=== PATIENT | female | born 1945 | race Caucasian/White ===

== ENCOUNTER 2016-11-15 13:43 | Outpatient (RCR) | payer MEDICARE ==
[2016-09-13] MEDS: inFLIXimab 300 MG/NS 250 ML (EXCEL) IV SCH ×2 (13:45)
[2016-09-13 14:52] VITALS: BP 130/74
[2016-09-13 16:02] VITALS: BP 130/74
[~2016-11-15] VITALS: Ht 165.1 cm; Wt 72.6 kg
[~2016-11-15 13:43] MED LIST: ASP81TEC PO; BACL10TA PO; CALC-760 PO; CEPH500C PO; CETI10TA17 PO; CHOL10002 GT; CLOB15CR3 TP; CYAN100053 IJ; CYCL10TA9 PO; DICL75TA2 PO; DIPH25TA82 PO; FERR27TA PO; FLUO40CA PO; FNT50TD TD; FOLI0.4T2 PO; GBPN300C PO; HCT25T PO; HYDR-2856 PO; HYDR-3454 PO; HYDR-3583 PO; LISI1TAB8 PO; MAGN200T3 PO; MAGN250T7 PO; MELO-195 PO; METH-336 PO; METHOTREXATE 2.5 MG PO; MGX400T PO; MTX2.5T PO; MULT-608 PO; OXYB5TAB9 PO; POTA10TA36 PO; POTA99TA7 PO; RANI-351 PO; TR1C15 TOP; TRAM50TA2 PO; [UNRECOGNIZED DRUG - OTHER] SQ
[2016-11-15] MEDS: inFLIXimab 300 MG/NS 250 ML (EXCEL) IV SCH ×2 (14:00)
[2016-11-15 16:10] VITALS: BP 106/63
== END 2016-12-12 | disposition home or self-care (01) ==
LOC: SDC 13:43
PROVIDERS: ATTEND Internal Medicine Rheumatology
DX: M05.79 Rheumatoid arthritis with rheumatoid factor of multiple sites without organ or systems involvement (principal)
CPT/HCPCS: 96365; 96366

== ENCOUNTER → 2017-01-10 | Outpatient (CLI) | payer MEDICARE ==
[~2017-01-10] VITALS: Ht 165.1 cm; Wt 72.6 kg
[~2017-01-10] MED LIST changes: +inFLIXimab 300 MG/NS 250 ML (EXCEL) IV SCH
[2017-01-10 15:52] VITALS: BP 117/67
== END ==
LOC: SDC 12:52
PROVIDERS: ATTEND Internal Medicine Rheumatology
DX: M05.79 Rheumatoid arthritis with rheumatoid factor of multiple sites without organ or systems involvement (principal)
CPT/HCPCS: 96365; 96366

== ENCOUNTER → 2017-03-07 | Outpatient (CLI) | payer MEDICARE ==
[~2017-03-07] VITALS: Ht 165.1 cm; Wt 72.6 kg
[2017-03-07 14:00] VITALS: BP 139/70
[2017-03-07 16:20] VITALS: BP 139/70
== END ==
LOC: SDC 13:47
PROVIDERS: ATTEND Internal Medicine Rheumatology
DX: M05.79 Rheumatoid arthritis with rheumatoid factor of multiple sites without organ or systems involvement (principal)
CPT/HCPCS: 96365; 96366

== ENCOUNTER → 2017-03-12 | Outpatient (CLI) | payer MEDICARE ==
[~2017-03-12] MED LIST changes: -inFLIXimab 300 MG/NS 250 ML (EXCEL) IV SCH
--- NOTE | 2017-03-14 19:15 | Diagnostic Imaging Report ---
Bilateral screening mammogram The current study was also evaluated with a Computer Aided Detection (CAD) system. Indication: Screening. No current complaints stated on the questionnaire. COMPARISON: 01/30/16. FINDINGS: The breasts are composed of heterogeneously dense parenchyma which may decrease mammographic sensitivity. There are scattered benign-appearing calcifications seen. Allowing for technique and positional differences, no suspicious change is seen. IMPRESSION: Dense breasts with no definite change. ACR BI-RADS Category 2: Benign findings. Result letter will be mailed to the patient. Note: At least 10% of breast cancer is not imaged by mammography. Dictated by: Dictated on workstation # [id number]
== END ==
LOC: RAD 13:34
PROVIDERS: ATTEND Nurse Practitioner
DX: Z12.31 Encounter for screening mammogram for malignant neoplasm of breast (principal)
CPT/HCPCS: 77067

== ENCOUNTER → 2017-05-14 | Outpatient (CLI) | payer MEDICARE ==
[~2017-05-14] VITALS: Ht 165.1 cm; Wt 72.6 kg
[~2017-05-14] MED LIST changes: +inFLIXimab 300 MG/NS 250 ML (EXCEL) IV SCH
[2017-05-14 12:15] VITALS: BP 108/55
== END ==
LOC: SDC 12:11
PROVIDERS: ATTEND Internal Medicine Rheumatology
DX: M05.79 Rheumatoid arthritis with rheumatoid factor of multiple sites without organ or systems involvement (principal)
CPT/HCPCS: 96365; 96366

== ENCOUNTER 2017-07-03 11:15 | Outpatient (RCR) | payer MEDICARE ==
[~2017-07-03 11:15] MED LIST changes: -inFLIXimab 300 MG/NS 250 ML (EXCEL) IV SCH
[2017-07-09] MEDS ORDERED: inFLIXimab 300 MG/NS 250 ML (EXCEL) IV SCH ×4 (14:44→15:00)
== END 2017-08-02 13:38 | disposition home or self-care (01) ==
PROVIDERS: ATTEND Orthopaedic Surgery
DX: M47.896 Other spondylosis, lumbar region (principal)

== ENCOUNTER → 2017-07-09 | Outpatient (CLI) | payer MEDICARE ==
[~2017-07-09] VITALS: Ht 165.1 cm; Wt 72.6 kg
[~2017-07-09] MED LIST changes: +INFLIXIMAB DYYB IV SCH; +NORMAL SALINE IV SCH; +inFLIXimab 300 MG/NS 250 ML (EXCEL) IV SCH
[2017-07-09 14:25] VITALS: BP 128/72
== END ==
LOC: SDC 14:17
PROVIDERS: ATTEND Internal Medicine Rheumatology
DX: M05.79 Rheumatoid arthritis with rheumatoid factor of multiple sites without organ or systems involvement (principal)
CPT/HCPCS: 96365; 96366

== ENCOUNTER → 2017-09-30 | Outpatient (CLI) | payer MEDICARE ==
[~2017-09-30] VITALS: Ht 165.1 cm; Wt 72.6 kg
[~2017-09-30] MED LIST changes: -INFLIXIMAB DYYB IV SCH; -NORMAL SALINE IV SCH; +SODIUM CHLORIDE IV ONE; +[UNRECOGNIZED DRUG - OTHER] IV ONE; -inFLIXimab 300 MG/NS 250 ML (EXCEL) IV SCH
[2017-09-30 12:00] VITALS: BP 125/67
== END ==
LOC: SDC 11:54
PROVIDERS: ATTEND Internal Medicine Rheumatology
DX: M05.79 Rheumatoid arthritis with rheumatoid factor of multiple sites without organ or systems involvement (principal)
CPT/HCPCS: 96365; 96366

== ENCOUNTER → 2017-11-25 | Outpatient (CLI) | payer MEDICARE ==
[~2017-11-25] VITALS: Ht 165.1 cm; Wt 72.6 kg
[2017-11-25 12:39] VITALS: BP 127/50
== END ==
LOC: SDC 12:31
PROVIDERS: ATTEND Internal Medicine Rheumatology
DX: M05.79 Rheumatoid arthritis with rheumatoid factor of multiple sites without organ or systems involvement (principal)

== ENCOUNTER 2018-04-03 09:45 | Outpatient (CLI) | payer MEDICARE ==
[~2018-04-03] VITALS: Ht 165.1 cm; Wt 68.5 kg
[~2018-04-03 09:45] MED LIST changes: -ASPI-983 PO; -CHOL10007 PO; -CNC1KV IM; -FENT1PAT58 TD; -FLUO20CA25 PO; -Ferrous Sulfate PO; -GABA-488 PO; -MAGN400T39 PO; -METH2.5T PO; -RANI150T11 PO; -SODIUM CHLORIDE IV ONE; -[UNRECOGNIZED DRUG - OTHER] IV ONE
[2018-04-03 10:02] VITALS: BP 134/74
[2018-04-03] MEDS ORDERED: LISI1TAB8 PO (10:39)
[2018-04-03] MEDS ORDERED: GABA-488 PO (10:39)
[2018-04-03] MEDS ORDERED: TRAM50TA2 PO (10:39)
[2018-04-03] MEDS ORDERED: METH2.5T PO (10:39)
[2018-04-03] MEDS ORDERED: CNC1KV IM (10:39)
[2018-04-03] MEDS ORDERED: CHOL10007 PO (10:39)
[2018-04-03] MEDS ORDERED: POTA10TA36 PO (10:39)
[2018-04-03] MEDS ORDERED: ASPI-983 PO (10:39)
[2018-04-03] MEDS ORDERED: FLUO40CA PO (10:39)
[2018-04-03] MEDS ORDERED: FLUO20CA25 PO (10:39)
[2018-04-03] MEDS ORDERED: FENT1PAT58 TD (10:39)
[2018-04-03] MEDS ORDERED: Ferrous Sulfate PO (10:39)
[2018-04-03] MEDS ORDERED: MAGN400T39 PO (10:39)
[2018-04-03] MEDS ORDERED: RANI150T11 PO (10:39)
== END 2018-04-03 10:30 | disposition home or self-care (01) ==
LOC: PREOP 09:45
PROVIDERS: ATTEND Podiatrist Foot & Ankle Surgery
DX: Z01.818 Encounter for other preprocedural examination (principal); M20.42 Other hammer toe(s) (acquired), left foot; Z88.0 Allergy status to penicillin; Z88.2 Allergy status to sulfonamides; Z88.5 Allergy status to narcotic agent
CPT/HCPCS: 87081

== ENCOUNTER → 2018-04-03 | Outpatient (CLI) | payer MEDICARE ==
[~2018-04-03] VITALS: Ht 165.1 cm; Wt 68.5 kg
[~2018-04-03] MED LIST changes: +ASPI-983 PO; +CHOL10007 PO; +CNC1KV IM; +FENT1PAT58 TD; +FLUO20CA25 PO; +Ferrous Sulfate PO; +GABA-488 PO; +MAGN400T39 PO; +METH2.5T PO; +RANI150T11 PO
[2018-04-03 10:30] VITALS: BP 117/73
== END ==
LOC: SDC 09:56
PROVIDERS: ATTEND Internal Medicine Rheumatology
DX: M05.79 Rheumatoid arthritis with rheumatoid factor of multiple sites without organ or systems involvement (principal)
CPT/HCPCS: 96365; 96366

== ENCOUNTER 2018-04-14 06:00 | Day surgery (SDC) | payer MEDICARE ==
[~2018-04-14] VITALS: Ht 165.1 cm; Wt 68.5 kg
[~2018-04-14 06:00] MED LIST changes: +ASPI-983 PO; +CHOL10007 PO; +CNC1KV IM; +FENT1PAT58 TD; +FLUO20CA25 PO; +Ferrous Sulfate PO; +GABA-488 PO; +MAGN400T39 PO; +METH2.5T PO; +RANI150T11 PO
[2018-04-14] MEDS ORDERED: LACTATED RINGERS 1,000 ML IV PRN (06:19)
[2018-04-14 06:20] VITALS: BP 128/71
[2018-04-14] MEDS ORDERED: ceFAZolin INJECTION 1,000 MG in NS (IVPB) 50 ML IV ONE (06:30)
[2018-04-14] MEDS ORDERED: NS (IVPB) 50 ML ONE (06:41)
[2018-04-14] MEDS ORDERED: FAMOTIDINE 20MG/2ML IV (PEPCID) ONE (06:41)
[2018-04-14] MEDS ORDERED: ceFAZolin 1,000 MG (ANCEF) VIAL ONE (06:41)
[2018-04-14] MEDS ORDERED: FAMOTIDINE 20MG/2ML IV (PEPCID) IV ONE (06:45)
[2018-04-14] MEDS ORDERED: SEVOFLURANE (ULTANE) 15 ML INHAL SOLN ONE ×6 (07:09→09:22)
[2018-04-14] MEDS ORDERED: LIDOCAINE PF 2% 5 ML (XYLOCAINE) VIAL ONE (07:09)
[2018-04-14] MEDS ORDERED: ONDANSETRON 4 MG/2 ML (SDV) Z0FRAN ONE (07:09)
[2018-04-14] MEDS ORDERED: proPOfol 200 MG/20 ML (DIPRIVAN) VIAL IV ONE (07:09)
[2018-04-14] MEDS ORDERED: fentaNYL INJECTION 100 MCG/2 ML AMP ONE (07:10)
[2018-04-14] MEDS ORDERED: LIDOCAINE 1% INJ 20 ML 20 ML VIAL ONE (07:26)
[2018-04-14] MEDS ORDERED: BUPIVACAINE 0.5% 30 ML (SENSORCAINE) VIAL ONE (07:26)
--- NOTE | 2018-04-14 07:36 | Progress Note-Pre Operative ---
Pre-Operative Progress Note H&P Reviewed The H&P was reviewed, patient examined and no changes noted. Date Seen by Provider: Apr 14, 2018 Time Seen by Provider: 07:35 Date H&P Reviewed: Apr 14, 2018 Time H&P Reviewed: 07:35 Pre-Operative Diagnosis: Hypertrophic 4th metatarsal, hammertoe 2,3,4 left foot GUY ZAPATA DPM Apr 14, 2018 7:36 am
[2018-04-14] MEDS ORDERED: LACTATED RINGERS 1,000 ML IV SCH (09:34)
--- NOTE | 2018-04-14 09:34 | Progress Note-Post Operative ---
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
[2018-04-14] MEDS ORDERED: CEPH500C PO (09:40)
[2018-04-14] MEDS ORDERED: morphine INJ 10 MG/ML 1ML (SYR OR VIAL) IVP PRN (09:45)
[2018-04-14] MEDS ORDERED: ONDANSETRON 4 MG/2 ML (SDV) Z0FRAN IVP PRN (09:45)
[2018-04-14 10:30] VITALS: BP 117/66
--- NOTE | 2018-04-14 10:51 | Diagnostic Imaging Report ---
INDICATION: Status post foot surgery. COMPARISON: 08/31/2013 FINDINGS: Two radiographic views of the left foot were obtained. Since the previous exam, there has been healing of previously described osteotomy of the first proximal phalanx. Orthopedic nail remains within the distal margins of the first metatarsal. New screw is noted within the distal end of the second metatarsal. Jersey wires have since been removed from the second and third toes with fusion of the proximal and mid phalanges. Two Jersey wires are seen within the fourth toe with osteotomy defect and non-fusion of the proximal mid phalanx. Two screws are also seen within the distal end of the fourth metatarsal. There is surrounding soft tissue emphysema. Postsurgical changes of the fifth toe are again noted. No unexpected radiopaque foreign bodies are seen. Other osseous structures and joint spaces are intact. IMPRESSION: 1. Postsurgical changes of the left foot as described above. Dictated by: Dictated on workstation # [id number]
--- NOTE | 2018-04-14 10:52 | Anesthesia-General Post-Op ---
General Patient Condition Mental Status/LOC: Same as Preop Cardiovascular: Satisfactory Nausea/Vomiting: Absent Respiratory: Satisfactory Pain: Controlled Complications: Absent Post Op Complications Complications None Follow Up Care/Instructions Patient Instructions None needed. Anesthesia/Patient Condition Patient Condition Patient is doing well, no complaints, stable vital signs, no apparent adverse anesthesia problems. KELLE HORVATH DO Apr 14, 2018 10:52
[2018-04-14 11:00] VITALS: BP 119/67
[2018-04-14 11:30] VITALS: BP 126/67
--- NOTE | 2018-04-14 14:26 | OPERATIVE REPORT ---
DATE OF SERVICE: 04/14/2018 SURGEON: Tina Zapata DPM PREOPERATIVE DIAGNOSES: 1. Hammer digit syndrome, second, third and fourth, left foot. 2. Chronic ulceration, left fourth toe. 3. Hypertrophic fourth metatarsal, left. POSTOPERATIVE DIAGNOSES: 1. Hammer digit syndrome, second, third and fourth, left foot. 2. Chronic ulceration, left fourth toe. 3. Hypertrophic fourth metatarsal, left. PROCEDURES: 1. Fourth metatarsal osteotomy, left foot. 2. Reduction of hammertoe, left fourth digit. 3. Arthroplasty, left second metatarsophalangeal joint. WOUND CLASS: Clean. ANESTHESIA: General. HEMOSTASIS: Pneumatic thigh tourniquet at 250 mmHg. INDICATIONS: This 73-year-old female presents complaining of a chronic wound to between the left fourth and third digits. She had had previous surgery to the left foot, which resulted in a malunion of the proximal interphalangeal joint arthrodesis, left fourth toe. Due to this malalignment of the digit, there was significant pressure between the toes resulting in an ulceration of the left fourth digit. There remained some lateral deviation to the left second, third digits, left foot. There is also a hypertrophic fourth metatarsal which we intended to surgically address. Risks and complications associated with the procedures were discussed at length and the patient is willing to proceed. DESCRIPTION OF PROCEDURE: The patient was brought back to the operating room table and placed in a secure supine position. Appropriate timeout was performed. General anesthetic was then induced. Local anesthetic was also applied to the left lower extremity utilizing aseptic technique and 10 mL of 0.5% Marcaine to the second, third and fourth rays, left foot. The left lower extremity had a tourniquet applied to the thigh over several layers of padding. The left foot was then prepped and draped in normal sterile manner. The left foot was then elevated and allowed to exsanguinate after which the tourniquet was inflated to 250 mmHg. Attention was then directed to the dorsal aspect of the left second metatarsophalangeal joint where a 2 cm longitudinal linear incision was created. The incision was deepened in the same plane with great care to identify and retract all vital neurovascular structures. Blunt dissection was carried out to the medial aspect of the second metatarsophalangeal joint after which a Bennett blade was utilized to release the lateral collateral ligaments improving the overall alignment of the second and also the third digits. The wound was flushed with copious amounts of normal saline. Deep closure was performed with 4-0 Vicryl, superficial with 4-0 Vicryl and skin closed with 4-0 Prolene in a horizontal mattress type stitch. Attention was then directed to the left fourth toe. An incision was created from the surgical neck of the metatarsal to the distal interphalangeal joint area, which is approximately 3.5 cm. The incision was deepened in the same plane with a great care to identify and retract all vital neurovascular structures. A Z slide lengthening of the extensor tendon was performed overlying the proximal phalanx. The extensor escobar was released and the medial lateral collateral ligaments to the metatarsophalangeal joint were also released. This exposed the hypertrophic head of the fourth metatarsal. A Jay type osteotomy was then performed. The sagittal saw was utilized to create the osteotomy from distal to proximal. The plane of the blade was parallel to what would be the weightbearing surface for the patient's foot. The capital fragment was translocated proximally and fixated in its corrected position utilizing 2.0 snap-off screws of 12 mm of length. The bone was found to be very soft throughout this procedure. The wound was flushed with copious amounts of normal saline. Attention was then directed to the malunion of the proximal interphalangeal joint. Utilizing power sagittal saw, a wedge of bone was resected with the base medial. This allowed for correction of the angulation at the proximal interphalangeal joint area. Two 0.045 K wires were driven from the proximal interphalangeal joint area distally out the end of the toe and retrograded proximally once the toe was in appropriate alignment. Excellent bony apposition was appreciated at this time. The extra K wire out the end of the toe was cut and two protective balls placed over the wires. The wound was flushed with copious amounts of normal saline. Closure was then performed in layers. Deep closure was performed with 4-0 Vicryl, superficial with 4-0 Vicryl, skin closed with 4-0 Prolene in a horizontal mattress type stitch. Tourniquet was released noting appropriate capillary refill time to all digits of the left foot. Postoperative injection consisted of 8 mL of 0.5% Marcaine injected in a local infusion to the surgical site. Postoperative dressing consisted of Betadine-soaked Adaptic, sterile 4 x 4, sterile Kerlix all secured with a Coban wrap. The patient was given postoperative instructions to be partial weightbearing on the left foot with walker. She is also to be given a prescription for Keflex and tramadol. She will follow up in my office in 10 days' period of time or sooner if necessary. Job ID: [id number] DocumentID: [id number] Dictated Date: 04/14/2018 09:49:18 Clinical Science Consultant Date: 04/14/2018 14:26:03 Dictated By: TINA ZAPATA DPM
== END 2018-04-14 11:35 | disposition home or self-care (01) ==
LOC: SDC 06:00
PROVIDERS: ATTEND Podiatrist Foot & Ankle Surgery
DX: M20.42 Other hammer toe(s) (acquired), left foot (principal); M89.372 Hypertrophy of bone, left ankle and foot; L97.529 Non-pressure chronic ulcer of other part of left foot with unspecified severity; F32.9 Major depressive disorder, single episode, unspecified; K21.9 Gastro-esophageal reflux disease without esophagitis; I10 Essential (primary) hypertension; E78.5 Hyperlipidemia, unspecified; M06.9 Rheumatoid arthritis, unspecified; M79.7 Fibromyalgia; G89.29 Other chronic pain; Z96.653 Presence of artificial knee joint, bilateral; Z87.891 Personal history of nicotine dependence; Z79.899 Other long term (current) drug therapy
CPT/HCPCS: 73620

== ENCOUNTER → 2018-05-02 | Outpatient (CLI) | payer MEDICARE ==
[~2018-05-02] MED LIST changes: -METH2.5T PO
--- NOTE | 2018-05-02 13:39 | Diagnostic Imaging Report ---
INDICATION: Routine screening. COMPARISON: Comparison is made with prior study from 03/12/2017 and 01/30/2016. TECHNIQUE: 2D and 3D bilateral screening mammography was performed with computer-aided detection (CAD) system. FINDINGS: Both breasts remain heterogeneously dense, limiting the sensitivity of mammography. The parenchymal pattern is stable. There are benign parenchymal and vascular calcifications bilaterally. No mass or malignant appearing microcalcifications are seen. The axillae are unremarkable. IMPRESSION: No mammographic features suspicious for malignancy are identified. ACR BI-RADS Category 2: Benign findings. Result letter will be mailed to the patient. Note: At least 10% of breast cancer is not imaged by mammography. Dictated by: Dictated on workstation # [id number]
== END ==
LOC: RAD 08:06
PROVIDERS: ATTEND Nurse Practitioner
DX: Z12.31 Encounter for screening mammogram for malignant neoplasm of breast (principal)
CPT/HCPCS: 77067

== ENCOUNTER 2018-05-17 13:33 | Emergency (ER) | payer OTHER, MEDICARE ==
[~2018-05-17] VITALS: Ht 167.6 cm; Wt 59.0 kg
[2018-05-17] MEDS ORDERED: fentaNYL INJECTION 100 MCG/2 ML AMP IVP STA (13:44)
[2018-05-17] MEDS ORDERED: IOHEXOL 350 MG/ML 100 ML (OMNIPAQUE 350) VIAL IV ONE (14:00)
[2018-05-17] MEDS ORDERED: NS 100 ML (IVPB) BAG IV ONE (14:00)
[2018-05-17 14:05] LABS: BASOPHILS % (AUTO) 0 % (0-10); EOSINOPHILS # (AUTO) 0.1 10^3/uL (0.0-0.3); EOSINOPHILS % (AUTO) 1 % (0-10); HEMATOCRIT 39 % (35-52); HEMOGLOBIN 13.4 G/DL (11.5-16.0); LYMPHOCYTES # (AUTO) 1.6 X 10^3 (1.0-4.0); LYMPHOCYTES % (AUTO) 16 % (12-44); MEAN CORPUSCULAR HEMOGLOBIN 32 PG (25-34); MEAN CORPUSCULAR HGB CONC 34 G/DL (32-36); MEAN CORPUSCULAR VOLUME 93 FL (80-99); MEAN PLATELET VOLUME 10.3 FL (7.4-10.4); MONOCYTES # (AUTO) 0.6 X 10^3 (0.0-1.0); MONOCYTES % (AUTO) 6 % (0-12); NEUTROPHILS # (AUTO) 7.8 X 10^3 (1.8-7.8); NEUTROPHILS % (AUTO) 77 % (42-75); PLATELET COUNT 328 10^3/uL (130-400); WHITE BLOOD COUNT 10.1 10^3/uL (4.3-11.0)
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
[2018-05-17 14:50] LABS: BILIRUBIN,URINE NEGATIVE (NEGATIVE); CLARITY,URINE CLEAR; COLOR,URINE YELLOW; GLUCOSE, URINE (UA) NEGATIVE (NEGATIVE); KETONES,URINE NEGATIVE (NEGATIVE); LEUKOCYTE ESTERASE ,URINE 2+ (NEGATIVE); NITRITE,URINE NEGATIVE (NEGATIVE); PH,URINE 5 (5-9); PROTEIN,URINE 1+ (NEGATIVE); UROBILINOGEN,URINE NORMAL (NORMAL)
[2018-05-17 15:00] LABS: BACTERIA,URINE TRACE /HPF; SQUAMOUS EPITHELIAL CELL,UR 0-2 /HPF; WBC,URINE 0-2 /HPF
[2018-05-17] MEDS ORDERED: morphine INJ 10 MG/ML 1ML (SYR OR VIAL) IVP ONE (15:00)
[2018-05-17 15:01] LABS: ALANINE AMINOTRANSFERASE 15 U/L (0-55); ALBUMIN 3.6 GM/DL (3.2-4.5); ALKALINE PHOSPHATASE 101 U/L (40-136); AMYLASE 68 U/L (25-125); BILIRUBIN,TOTAL 0.3 MG/DL (0.1-1.0); BUN/CREATININE RATIO 36; CALCIUM 9.1 MG/DL (8.5-10.1); CARBON DIOXIDE 22 MMOL/L (21-32); CHLORIDE 102 MMOL/L (98-107); CREATININE SERUM 0.81 MG/DL (0.60-1.30); GFR ESTIMATED > 60; GLUCOSE 119 MG/DL (70-105); LIPASE 23 U/L (8-78); POTASSIUM 3.9 MMOL/L (3.6-5.0); SODIUM 136 MMOL/L (135-145); TOTAL PROTEIN 7.1 GM/DL (6.4-8.2)
[2018-05-17 15:25] VITALS: BP 135/90
== END 2018-05-17 15:25 | disposition home or self-care (01) ==
LOC: EDUNIT# 13:33 → ER 13:36
DX: S00.83XA Contusion of other part of head, initial encounter (principal); M06.9 Rheumatoid arthritis, unspecified; I10 Essential (primary) hypertension; F41.9 Anxiety disorder, unspecified; F32.9 Major depressive disorder, single episode, unspecified; Z87.442 Personal history of urinary calculi; Z87.891 Personal history of nicotine dependence; Z98.84 Bariatric surgery status; Z88.5 Allergy status to narcotic agent; Z88.0 Allergy status to penicillin; Z88.2 Allergy status to sulfonamides; Z79.82 Long term (current) use of aspirin; Z96.653 Presence of artificial knee joint, bilateral; Z90.49 Acquired absence of other specified parts of digestive tract; Z90.710 Acquired absence of both cervix and uterus; V43.52XA Car driver injured in collision with other type car in traffic accident, initial encounter; W22.11XA Striking against or struck by driver side automobile airbag, initial encounter
CPT/HCPCS: 36415; 71045; 71260; 74177; 80053; 81000; 82150; 83690; 84484; 85025; 93005; 93041; 96374; 96375

== ENCOUNTER 2018-05-25 17:59 | Emergency (ER) | payer OTHER, MEDICARE ==
[~2018-05-25] VITALS: Ht 165.1 cm; Wt 65.8 kg
[2018-05-25] MEDS ORDERED: RT-ALBUTEROL/IPRATROPIUM 3 ML (DUONEB) VIAL ONE (18:08)
[2018-05-25] MEDS ORDERED: NS IV 1000 ML 1,000 ML IV ONE (18:09)
[2018-05-25] MEDS ORDERED: NS IV 1000 ML 1,000 ML ONE (18:11)
[2018-05-25] MEDS ORDERED: RT-ALBUTEROL/IPRATROPIUM 3 ML (DUONEB) VIAL INH ONE ×2 (18:15→20:45)
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
[2018-05-25 18:26] LABS: ABG BASE EXCESS 6.3 MMOL/L (-2.5-2.5); ABG OXYGEN SATURATION 96 % (94-100); ABG PCO2 40 MMHG (35-45); ABG PH 7.48 (7.37-7.43); ABG PO2 73 MMHG (79-93); ABG TCO2 31.3 MMOL/L (21.0-31.0); ALLENS TEST YES-POS; INSPIRED O2 ROOM AIR
[2018-05-25 18:27] LABS: PATIENT TEMP 97.9; VENTILATOR NO
[2018-05-25 18:34] LABS: BASOPHILS # (AUTO) 0.1 10^3/uL (0.0-0.1); BASOPHILS % (AUTO) 0 % (0-10); EOSINOPHILS % (AUTO) 0 % (0-10); HEMATOCRIT 34 % (35-52); HEMOGLOBIN 12.1 G/DL (11.5-16.0); LYMPHOCYTES # (AUTO) 0.7 X 10^3 (1.0-4.0); LYMPHOCYTES % (AUTO) 3 % (12-44); MEAN CORPUSCULAR HEMOGLOBIN 31 PG (25-34); MEAN CORPUSCULAR HGB CONC 35 G/DL (32-36); MEAN CORPUSCULAR VOLUME 89 FL (80-99); MEAN PLATELET VOLUME 12.4 FL (7.4-10.4); MONOCYTES # (AUTO) 0.2 X 10^3 (0.0-1.0); MONOCYTES % (AUTO) 1 % (0-12); NEUTROPHILS # (AUTO) 23.2 X 10^3 (1.8-7.8); NEUTROPHILS % (AUTO) 96 % (42-75); PLATELET COUNT 96 10^3/uL (130-400); RED BLOOD COUNT 3.86 10^6/uL (4.35-5.85); RED CELL DISTRIBUTION WIDTH 14.4 % (10.0-14.5); WHITE BLOOD COUNT 24.1 10^3/uL (4.3-11.0)
[2018-05-25 18:41] LABS: INR 1.2 (0.8-1.4); PROTHROMBIN TIME PATIENT 15.4 SEC (12.2-14.7)
[2018-05-25] MEDS ORDERED: LACTATED RINGERS 1,000 ML IV ONE ×2 (18:45)
[2018-05-25] MEDS ORDERED: cefTRIAXone INJECTION 1,000 MG in NS (IVPB) 50 ML IV ONE (18:45)
[2018-05-25 18:50] LABS: ALBUMIN 2.1 GM/DL (3.2-4.5); CALCIUM 9.9 MG/DL (8.5-10.1); CREATININE SERUM 1.15 MG/DL (0.60-1.30); MAGNESIUM 1.7 MG/DL (1.8-2.4); TOTAL PROTEIN 5.5 GM/DL (6.4-8.2)
[2018-05-25 18:50] LABS: BILIRUBIN,URINE NEGATIVE (NEGATIVE); CLARITY,URINE SLIGHTLY CLOUDY; COLOR,URINE YELLOW; GLUCOSE, URINE (UA) NEGATIVE (NEGATIVE); KETONES,URINE 1+ (NEGATIVE); LEUKOCYTE ESTERASE ,URINE 3+ (NEGATIVE); NITRITE,URINE NEGATIVE (NEGATIVE); PH,URINE 5 (5-9); PROTEIN,URINE 2+ (NEGATIVE); UROBILINOGEN,URINE 4 MG/DL (NORMAL)
[2018-05-25 18:55] LABS: NEUTROPHILS % (MANUAL) 83 %
[2018-05-25 18:56] LABS: MYOGLOBIN SERUM 107.5 NG/ML (10.0-92.0)
[2018-05-25 18:57] LABS: BAND NEUTROPHILS 16 %; BASOPHILS % (MANUAL) 0 %; EOSINOPHILS % (MANUAL) 0 %; LYMPHOCYTES % (MANUAL) 1 %; MONOCYTES % (MANUAL) 0 %
[2018-05-25 18:58] LABS: CREATINE KINASE MB 10.2 NG/ML (<6.6); POIKILOCYTOSIS SLIGHT; POTASSIUM 2.5 MMOL/L (3.6-5.0); STOMATOCYTES SLIGHT; TARGET CELLS SLIGHT; TOXIC GRANULATION/VACUOLAZATIO 1+
[2018-05-25 18:59] LABS: ROULEAUX SLIGHT
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
[2018-05-25 19:04] LABS: BACTERIA,URINE LARGE /HPF
[2018-05-25] MEDS ORDERED: NOREPINEPHRINE 4 MG in NS (IVPB) 250 ML IV SCH (19:15)
[2018-05-25] MEDS ORDERED: FUROSEMIDE 40 MG/4 ML INJ (LASIX) IVP ONE (19:15)
[2018-05-25] MEDS ORDERED: methylPREDNISolone 125 MG (Solu-MEDROL) VIAL IVP ONE (19:15)
[2018-05-25] MEDS ORDERED: 1/2 NS W/KCL 20 MEQ/L 1,000 ML IV SCH (19:15)
[2018-05-25] MEDS ORDERED: LIDOCAINE 1% INJ 20 ML 20 ML VIAL ONE (19:34)
--- NOTE | 2018-05-25 19:42 | Diagnostic Imaging Report ---
PROCEDURE: CT chest, abdomen, and pelvis without contrast. TECHNIQUE: Multiple contiguous axial images were obtained through the chest, abdomen, and pelvis without the use of intravenous contrast. INDICATION: Hypertension, shortness of breath, cough, recent trauma COMPARISON: Chest x-ray same day FINDINGS: The heart is mildly enlarged. There is a a tiny hematoma in retrosternal space measuring 2.5 cm. There is no pericardial effusion. There is a nondisplaced fracture of the midsternal body. No obvious additional fracture is seen. There are hxwe-zv-yfakzixm bilateral pleural effusions with dependent atelectasis. There is scattered patchy infiltrates throughout both lungs concerning for pneumonia. Pulmonary contusions are felt to be less likely but not excluded. Central airways are patent. There is no lymphadenopathy. Single mid thoracic compression fracture is present likely chronic. Otherwise, thoracic spine is unremarkable. IMPRESSION: 1. Sternal fracture with small retrosternal space hematoma. No pericardial effusion or mediastinal hematoma seen. 2. Bilateral pleural effusions, dependent atelectasis. 3. Patchy bilateral pulmonary infiltrates likely pneumonia. This is felt to be less likely contusion. Followup recommended. 4. No pneumothorax. CT abdomen and pelvis: Solid organs, vascular structures, and bowel are unremarkable. There is a nonobstructive stone in the inferior pole of the right kidney. There is no hydronephrosis. There is no hemoperitoneum or free air. The urinary bladder is decompressed with a Cancino catheter. There is some mild constipation. There is chronic grade 2-3 anterolisthesis of L4 on L5 likely due to pars defects. Atherosclerosis is seen throughout the abdominal aorta and iliac vessels. Both hips and the bony pelvis appear intact. IMPRESSION: 1. No acute trauma within the abdomen or pelvis. 2. Nonobstructive right renal calculi 3. Degenerative changes throughout the lumbar spine with grade 2-3 anterolisthesis of L4 on L5 due to pars defects. 4. Not mentioned above is chronic healed right inferior pubic ramus fracture. 5. Constipation without obstruction. Dictated by: Dictated on workstation # [id number]
[2018-05-25] MEDS ORDERED: NOREPINEPHRINE 4 MG/4 ML (LEVOPHED) AMP IV ONE (19:55)
[2018-05-25] MEDS ORDERED: FUROSEMIDE 40 MG/4 ML INJ (LASIX) ONE (19:55)
[2018-05-25] MEDS ORDERED: cefTRIAXone 1 GM (ROCEPHIN) VIAL ONE (19:55)
[2018-05-25] MEDS ORDERED: NS (IVPB) 50 ML ONE (19:55)
[2018-05-25] MEDS ORDERED: NS (IVPB) 250 ML ONE ×2 (19:55→21:30)
[2018-05-25] MEDS ORDERED: NS W/KCL 20 MEQ/L 1,000 ML IV ONE (19:58)
--- NOTE | 2018-05-25 20:08 | Diagnostic Imaging Report ---
INDICATION: Central line placement COMPARISON: 05/25/2018 FINDINGS: Single view of the chest demonstrates right IJ catheter with the tip of the catheter in the SVC. There is no pneumothorax or large effusion. Aeration is unchanged. IMPRESSION: Well-positioned right IJ catheter without pneumothorax Dictated by: Dictated on workstation # [id number]
[2018-05-25] MEDS ORDERED: fentaNYL INJECTION 100 MCG/2 ML AMP IVP STA (20:22)
[2018-05-25] MEDS ORDERED: fentaNYL INJECTION 100 MCG/2 ML AMP ONE (20:22)
[2018-05-25] MEDS ORDERED: DEXAMETHASONE 4 MG/ML SDV (DECADRON) IH ONE (20:45)
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
[2018-05-25] MEDS ORDERED: VANCOMYCIN 1000 MG/VIAL ONE (21:30)
[2018-05-25] MEDS ORDERED: VANCOMYCIN INJECTION 1,000 MG in NS (IVPB) 250 ML IV ONE (21:45)
[2018-05-25 22:37] VITALS: BP 104/63
--- NOTE | 2018-05-25 22:59 | OPERATIVE REPORT ---
DATE OF SERVICE: 05/25/2018 PREOPERATIVE DIAGNOSIS: Hypotension. POSTOPERATIVE DIAGNOSIS: Hypotension. PROCEDURE: Right internal jugular vein central line placement, ultrasound-guided. SURGEON: Lisa Bhardwaj DO. ANESTHESIA: A 1% lidocaine. ESTIMATED BLOOD LOSS: Minimal. COMPLICATIONS: None. INDICATIONS: The patient is a 73-year-old female who presented to the Emergency Department and is hypotensive. Dr. Pastrana requested that a central line will be placed so she can start Levophed. The patient and family understood risks and benefits of procedure and wished to proceed with the procedure. Consent was signed on the chart. DESCRIPTION OF PROCEDURE: The patient was prepped and draped in sterile fashion. Timeout was performed. Using ultrasound, the right internal jugular vein was located. Local anesthetic was infiltrated into the area and the right internal jugular vein was accessed. Dark nonpulsatile was withdrawn. The guidewire was inserted through the needle and the needle was removed. A #11 blade scalpel was used to make a stab incision and a dilator was then advanced over the wire and removed. The triple lumen catheter was then advanced over the guidewire and the wire was removed. All ports were accessed and flushed without difficulty. The catheter was sewn into place and the area was washed and dried and sterile bandage was applied. The patient tolerated procedure well without any complications. 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
== END 2018-05-25 22:37 | disposition short-term general hospital (02) ==
LOC: EDUNIT# 17:59 → ER 18:00 → ICU 20:00 → UNDOADMIN 20:00
DX: R07.9 Chest pain, unspecified (principal); R42 Dizziness and giddiness; M25.461 Effusion, right knee; M54.9 Dorsalgia, unspecified; G89.29 Other chronic pain; I10 Essential (primary) hypertension; F41.9 Anxiety disorder, unspecified; F32.9 Major depressive disorder, single episode, unspecified; M06.9 Rheumatoid arthritis, unspecified; Z88.5 Allergy status to narcotic agent; Z87.442 Personal history of urinary calculi; Z88.2 Allergy status to sulfonamides; Z88.0 Allergy status to penicillin; Z79.82 Long term (current) use of aspirin; Z87.891 Personal history of nicotine dependence; Z98.84 Bariatric surgery status; Z90.89 Acquired absence of other organs; Z96.653 Presence of artificial knee joint, bilateral; Z90.710 Acquired absence of both cervix and uterus
CPT/HCPCS: 36415; 36600; 51702; 71045; 71250; 73562; 74176; 80053; 81000; 82150; 82550; 82553; 82805; 83605; 83690; 83735; 83874; 83880; 84484; 85007; 85027; 85610; 85730; 87040; 87077; 87088; 87186; 93005; 93041; 93306; 94640; 96361; 96365; 96366; 96367; 96368; 96375